=== PATIENT | female | born 1965 | race Caucasian/White ===

== ENCOUNTER → 2017-12-02 | Emergency (ER) | payer OTHER ==
[~2017-12-02] VITALS: Ht 165.1 cm; Wt 86.2 kg
[~2017-12-02] MED LIST: CLONAZEPAM2 M1; CYMBALTA20 MG; CYTOMEL50 MCG; HYZAAR 100-251 EACH; NORVASC5 MG; TOPAMAX50 MG
== END | disposition home or self-care (01) ==
LOC: ER 12:33
DX: M62.838 Other muscle spasm (principal); M25.512 Pain in left shoulder; M25.511 Pain in right shoulder